=== PATIENT | female | born 1980 | race Caucasian/White ===

== ENCOUNTER 2017-07-16 08:51 | Emergency (ER) | payer MEDICAID ==
[~2017-07-16] VITALS: Ht 172.7 cm; Wt 110.0 kg
[~2017-07-16 08:51] MED LIST: ONDA4TAB12 PO
[2017-07-16] MEDS ORDERED: morphine 8mg/ml inj. syringe IV PRN (09:50)
[2017-07-16] MEDS ORDERED: ondansetron/PF 4mg/2ml inj IV ONE (09:50)
[2017-07-16] MEDS ORDERED: normal saline 1000ML IV soln IVB ONE (09:50)
[2017-07-16 10:17] LABS: BASOPHILS % (AUTO) 0.2 % (0-1); EOSINOPHILS # (AUTO) 0.2 X10'3 (0-0.9); EOSINOPHILS % (AUTO) 2.3 % (0-6); HEMATOCRIT 44.5 % (35.0-45.0); HEMOGLOBIN 14.9 g/dl (12.0-16.0); LYMPHOCYTES # (AUTO) 1.7 X10'3 (1.1-4.8); LYMPHOCYTES % (AUTO) 16.2 % (21-51); MEAN CORPUSCULAR HEMOGLOBIN 27.2 PG (27.0-31.0); MEAN CORPUSCULAR HGB CONC 33.5 % (33.0-36.5); MEAN PLATELET VOLUME 8.3 FL (7.4-10.4); MONOCYTES # (AUTO) 0.4 X10'3 (0-0.9); MONOCYTES % (AUTO) 4.1 % (2-12); NEUTROPHILS # (AUTO) 8.3 X10'3 (1.8-7.7); NEUTROPHILS % (AUTO) 77.2 % (42-75); PLATELET COUNT 343 X10'3 (140-440); RED CELL DISTRIBUTION WIDTH 14.4 % (11.5-14.5); WHITE BLOOD COUNT 10.8 X10'3 (4.5-11.0)
[2017-07-16 10:31] LABS: ALANINE AMINOTRANSFERASE 29 U/L (12-78); ALBUMIN 3.7 G/DL (3.4-5.0); ALBUMIN/GLOBULIN RATIO 0.9 (1.1-1.5); ALKALINE PHOSPHATASE 110 IU/L (46-116); ANION GAP 10 (8-16); ASPARTATE AMINO TRANSFERASE 12 U/L (10-37); BILIRUBIN,TOTAL 0.2 MG/DL (0.1-1.0); BLOOD UREA NITROGEN 20 MG/DL (7-18); BUN/CREATININE RATIO 23.3 (6.6-38.0); CALCIUM 9.3 MG/DL (8.5-10.1); CHLORIDE 107 MMOL/L (99-107); CREATININE 0.86 MG/DL (0.40-0.90); GLUCOSE 94 MG/DL (70-104); LIPASE 154 U/L (73-393); POTASSIUM 4.1 MMOL/L (3.5-5.1); SODIUM 143 MMOL/L (135-145); TOTAL CARBON DIOXIDE 25.7 MMOL/L (24-32); TOTAL PROTEIN 7.6 G/DL (6.4-8.2); eGFR 74 ML/MIN
[2017-07-16] MEDS ORDERED: morphine 4 MG/ML inj SYRINge IV ONE (10:35)
[2017-07-16] MEDS ORDERED: ONDA8TAB9 PO (11:00)
[2017-07-16] MEDS ORDERED: HYDR-3965 PO (11:00)
[2017-07-16 11:11] LABS: CLARITY,URINE CLEAR (Clear); COLOR,URINE YELLOW (Yellow); GLUCOSE, URINE NEGATIVE (Neg); KETONES,URINE NEGATIVE (Neg); LEUKOCYTE ESTERASE ,URINE NEGATIVE (Neg); NITRITES, URINE NEGATIVE (Neg); OCCULT BLOOD,URINE NEGATIVE (Neg); PROTEIN,URINE NEGATIVE (Neg); UROBILINOGEN,URINE 0.2 E.U/dL (0.2-1.0)
[2017-07-16 11:12] LABS: URINE HCG NEGATIVE (NEG)
[2017-07-16 11:15] LABS: UA COLLECTION TYPE CLN CATCH MIDSTREAM
[2017-07-16 11:25] VITALS: BP 155/91
[2017-07-17] MEDS ORDERED: LURA60TA2 PO (17:54)
[2017-07-17] MEDS ORDERED: LEVO25TA2 PO (17:54)
[2017-07-17] MEDS ORDERED: LAMO100T2 PO (17:54)
== END 2017-07-16 11:26 | disposition home or self-care (01) ==
LOC: ER 08:51
DX: K80.80 Other cholelithiasis without obstruction (principal); K21.9 Gastro-esophageal reflux disease without esophagitis; Z88.2 Allergy status to sulfonamides; Z88.8 Allergy status to other drugs, medicaments and biological substances; Z79.899 Other long term (current) drug therapy
CPT/HCPCS: 36415; 76700; 80053; 81003; 81025; 83690; 85025; 96361; 96374; 96375; 99285; J2270; J2405; J7030

== ENCOUNTER 2017-07-16 20:51 | Emergency (ER) | payer MEDICAID ==
[~2017-07-16] VITALS: Ht 172.7 cm; Wt 97.0 kg
[~2017-07-16 20:51] MED LIST changes: +HYDR-3965 PO; +ONDA8TAB9 PO
[2017-07-16] MEDS ORDERED: ondansetron/PF 4mg/2ml inj IV ONE (21:25)
[2017-07-16] MEDS ORDERED: morphine 2 MG/ML inj. syringe IV ONE ×4 (21:25→23:55)
[2017-07-16] MEDS ORDERED: ketorolac trometh. 30mg/ml inj. IV ONE (22:05)
[2017-07-16 22:48] LABS: ALANINE AMINOTRANSFERASE 26 U/L (12-78); ALBUMIN 3.7 G/DL (3.4-5.0); ALKALINE PHOSPHATASE 91 IU/L (46-116); ANION GAP 12 (8-16); ASPARTATE AMINO TRANSFERASE 12 U/L (10-37); BILIRUBIN,TOTAL 0.2 MG/DL (0.1-1.0); BLOOD UREA NITROGEN 16 MG/DL (7-18); BUN/CREATININE RATIO 20.3 (6.6-38.0); CHLORIDE 107 MMOL/L (99-107); CREATININE 0.79 MG/DL (0.40-0.90); GLUCOSE 120 MG/DL (70-104); POTASSIUM 3.9 MMOL/L (3.5-5.1); SODIUM 142 MMOL/L (135-145); TOTAL CARBON DIOXIDE 22.7 MMOL/L (24-32); TOTAL PROTEIN 7.4 G/DL (6.4-8.2); eGFR 81 ML/MIN
[2017-07-16] MEDS ORDERED: LORazepam 2 mg/ml vial IV ONE (23:55)
[2017-07-17 01:17] VITALS: BP 118/81
[2017-07-17] MEDS ORDERED: LAMO100T2 PO (17:54)
[2017-07-17] MEDS ORDERED: LEVO25TA2 PO (17:54)
[2017-07-17] MEDS ORDERED: LURA60TA2 PO (17:54)
== END 2017-07-17 01:19 | disposition home or self-care (01) ==
LOC: ER 20:52
DX: K80.20 Calculus of gallbladder without cholecystitis without obstruction (principal); K21.9 Gastro-esophageal reflux disease without esophagitis; F12.10 Cannabis abuse, uncomplicated; Z88.2 Allergy status to sulfonamides; Z88.1 Allergy status to other antibiotic agents; Z88.8 Allergy status to other drugs, medicaments and biological substances; Z79.899 Other long term (current) drug therapy
CPT/HCPCS: 36415; 80053; 96374; 96375; 96376; 99284; J1885; J2060; J2270; J2405

== ENCOUNTER 2017-07-17 09:24 | Inpatient (IN) | payer MEDICAID ==
[~2017-07-17] VITALS: Ht 172.7 cm; Wt 97.3 kg
[2017-07-17 10:22] LABS: BASOPHILS % (AUTO) 0 % (0-1); EOSINOPHILS % (AUTO) 0 % (0-6); HEMOGLOBIN 14.5 g/dl (12.0-16.0); LYMPHOCYTES # (AUTO) 1.5 X10'3 (1.1-4.8); LYMPHOCYTES % (AUTO) 7.7 % (21-51); MEAN CORPUSCULAR HEMOGLOBIN 27.3 PG (27.0-31.0); MEAN CORPUSCULAR HGB CONC 33.7 % (33.0-36.5); MEAN CORPUSCULAR VOLUME 81.2 FL (78-98); MEAN PLATELET VOLUME 8.2 FL (7.4-10.4); MONOCYTES # (AUTO) 0.7 X10'3 (0-0.9); MONOCYTES % (AUTO) 3.7 % (2-12); NEUTROPHILS # (AUTO) 17.4 X10'3 (1.8-7.7); NEUTROPHILS % (AUTO) 88.6 % (42-75); PLATELET COUNT 368 X10'3 (140-440); RED CELL DISTRIBUTION WIDTH 14.7 % (11.5-14.5); WHITE BLOOD COUNT 19.7 X10'3 (4.5-11.0)
[2017-07-17 10:36] LABS: PROTHROMBIN TIME 10.4 SECONDS (9.0-12.0)
[2017-07-17] MEDS ORDERED: normal saline 1000ML IV soln IVB ONE (10:40)
[2017-07-17] MEDS ORDERED: ondansetron/PF 4mg/2ml inj IV ONE (10:40)
[2017-07-17 10:42] LABS: ALANINE AMINOTRANSFERASE 35 U/L (12-78); ALBUMIN 3.7 G/DL (3.4-5.0); ALBUMIN/GLOBULIN RATIO 0.9 (1.1-1.5); ALKALINE PHOSPHATASE 95 IU/L (46-116); ANION GAP 10 (8-16); ASPARTATE AMINO TRANSFERASE 18 U/L (10-37); BILIRUBIN,TOTAL 0.4 MG/DL (0.1-1.0); BLOOD UREA NITROGEN 16 MG/DL (7-18); BUN/CREATININE RATIO 21.3 (6.6-38.0); CALCIUM 8.9 MG/DL (8.5-10.1); CHLORIDE 101 MMOL/L (99-107); CREATININE 0.75 MG/DL (0.40-0.90); GLUCOSE 125 MG/DL (70-104); SODIUM 139 MMOL/L (135-145); TOTAL PROTEIN 7.6 G/DL (6.4-8.2); eGFR 86 ML/MIN
[2017-07-17] MEDS ORDERED: HYDROmorphone inj. 0.5 MG/0.5 ML DISP.SYRIN IV ONE ×3 (10:45→15:35)
[2017-07-17 11:09] LABS: LIPASE 95 U/L (73-393)
[2017-07-17 11:15] LABS: CLARITY,URINE CLOUDY (Clear); COLOR,URINE YELLOW (Yellow); GLUCOSE, URINE NEGATIVE (Neg); KETONES,URINE NEGATIVE (Neg); LEUKOCYTE ESTERASE ,URINE NEGATIVE (Neg); NITRITES, URINE NEGATIVE (Neg); OCCULT BLOOD,URINE MODERATE (Neg); PROTEIN,URINE TRACE mg/dl (Neg); UROBILINOGEN,URINE 0.2 E.U/dL (0.2-1.0)
[2017-07-17 11:16] LABS: UA COLLECTION TYPE VOIDED
[2017-07-17 11:24] LABS: BACTERIA,URINE 2+ /HPF (Neg); MUCUS STRANDS MODERATE /LPF (Neg); SQUAMOUS EPITHELIAL CELL,UR MANY /LPF (FEW); WBC,URINE 0-4 /HPF (0-4)
[2017-07-17] MEDS ORDERED: levoFLOXACIN-Levaquin 750MG/D5 150 ML IV ONE (12:20)
[2017-07-17] MEDS ORDERED: magnesium hydroxide 30ml (MOM) UD suspension PO PRN ×3 (12:45→17:05)
[2017-07-17] MEDS ORDERED: mag hydrox/Alum hydrox/simeth 30ml oral suspension PO PRN ×2 (12:45→17:05)
[2017-07-17] MEDS ORDERED: acetaminophen 325mg tablet PO PRN ×4 (12:45→17:05)
[2017-07-17] MEDS ORDERED: ondansetron/PF 4mg/2ml inj IV PRN ×3 (12:45→17:05)
[2017-07-17] MEDS ORDERED: lisinopril 5mg tablet PO ONE (16:30)
[2017-07-17] MEDS: dextrose 5%-1/2 normal saline 1,000 ML IV SCH (16:52)
[2017-07-17 17:00] VITALS: BP 170/117
[2017-07-17] MEDS ORDERED: NORMAL SALINE IV ONE (17:05)
[2017-07-17] MEDS ORDERED: SINCALIDE IV ONE (17:05)
[2017-07-17] MEDS ORDERED: morphine 2 MG/ML inj. syringe IV PRN ×2 (17:05)
[2017-07-17] MEDS ORDERED: potassium Cl 20 mEq SR tablet PO PRN ×2 (17:05)
[2017-07-17] MEDS ORDERED: potassium Cl 40MEQ/NS 500ml 500 ML IV PRN ×2 (17:05)
[2017-07-17] MEDS ORDERED: potassium Cl 40MEQ/250ML bag 250 ML IV PRN ×2 (17:05)
[2017-07-17] MEDS ORDERED: HYDROmorphone 1 mg/ml syringe IV PRN ×2 (17:05)
[2017-07-17] MEDS: K, MAG and/or Phos replacement - Verify level? MC SCH (17:43)
[2017-07-17 17:45] VITALS: BP 159/88
[2017-07-17] MEDS ORDERED: LURA60TA2 PO (17:54)
[2017-07-17] MEDS ORDERED: LAMO100T2 PO (17:54)
[2017-07-17] MEDS ORDERED: LEVO25TA2 PO (17:54)
[2017-07-17 19:00] VITALS: BP 165/107
[2017-07-17] MEDS ORDERED: HYDROmorphone inj. 0.5 MG/0.5 ML DISP.SYRIN ONE ×2 (19:05→23:54)
[2017-07-17] MEDS: piperacillin/tazo 3.375gm/50ml 50 ML IV SCH (22:41)
[2017-07-17] MEDS: lurasidone 60mg tablet PO SCH (22:41)
[2017-07-17] MEDS: temazepam 15mg capsule PO PRN (22:57)
[2017-07-18] VITALS (21 sets, daily range): BP systolic 103–155; BP diastolic 54–103
[2017-07-18] MEDS ORDERED: ketorolac trometh. 30mg/ml inj. IV PRN (01:50)
[2017-07-18] MEDS ORDERED: ketorolac trometh. 30mg/ml inj. IV SCH (02:00)
[2017-07-18] MEDS: dextrose 5%-1/2 normal saline 1,000 ML IV SCH ×3 (02:20→22:45)
[2017-07-18] MEDS: piperacillin/tazo 3.375gm/50ml 50 ML IV SCH ×4 (02:21→20:18)
[2017-07-18 05:18] LABS: BASOPHILS # (AUTO) 0.1 X10'3 (0-0.2); BASOPHILS % (AUTO) 0.4 % (0-1); EOSINOPHILS # (AUTO) 0.3 X10'3 (0-0.9); EOSINOPHILS % (AUTO) 1.3 % (0-6); HEMATOCRIT 42.6 % (35.0-45.0); HEMOGLOBIN 14.5 g/dl (12.0-16.0); LYMPHOCYTES # (AUTO) 1.4 X10'3 (1.1-4.8); LYMPHOCYTES % (AUTO) 6.5 % (21-51); MEAN CORPUSCULAR HEMOGLOBIN 27.2 PG (27.0-31.0); MEAN CORPUSCULAR VOLUME 80.1 FL (78-98); MEAN PLATELET VOLUME 8.8 FL (7.4-10.4); MONOCYTES # (AUTO) 1.7 X10'3 (0-0.9); NEUTROPHILS # (AUTO) 17.8 X10'3 (1.8-7.7); NEUTROPHILS % (AUTO) 83.8 % (42-75); PLATELET COUNT 327 X10'3 (140-440); RED BLOOD COUNT 5.32 X10'6 (4.20-5.60); RED CELL DISTRIBUTION WIDTH 15.1 % (11.5-14.5); WHITE BLOOD COUNT 21.3 X10'3 (4.5-11.0)
[2017-07-18 05:32] LABS: ALANINE AMINOTRANSFERASE 45 U/L (12-78); ALBUMIN 2.9 G/DL (3.4-5.0); ALBUMIN/GLOBULIN RATIO 0.8 (1.1-1.5); ALKALINE PHOSPHATASE 100 IU/L (46-116); ANION GAP 8 (8-16); ASPARTATE AMINO TRANSFERASE 21 U/L (10-37); BILIRUBIN,TOTAL 0.9 MG/DL (0.1-1.0); BLOOD UREA NITROGEN 8 MG/DL (7-18); CALCIUM 7.9 MG/DL (8.5-10.1); CHLORIDE 100 MMOL/L (99-107); CREATININE 0.89 MG/DL (0.40-0.90); GLUCOSE 133 MG/DL (70-104); POTASSIUM 3.6 MMOL/L (3.5-5.1); SODIUM 136 MMOL/L (135-145); TOTAL CARBON DIOXIDE 27.9 MMOL/L (24-32); TOTAL PROTEIN 6.6 G/DL (6.4-8.2); eGFR 71 ML/MIN
[2017-07-18] MEDS: ketorolac tromethamine 15mg/ml inj. IV PRN ×2 (05:53→14:44)
[2017-07-18] MEDS: levoTHYROXINE 25mcg tablet PO SCH (07:00)
[2017-07-18] MEDS: K, MAG and/or Phos replacement - Verify level? MC SCH (08:00)
[2017-07-18] MEDS: lamoTRIgine 100mg tablet PO SCH (08:00)
[2017-07-18] MEDS ORDERED: morphine 2 MG/ML inj. syringe IV ONE (09:10)
[2017-07-18] MEDS ORDERED: morphine 2 MG/ML inj. syringe ONE (09:12)
[2017-07-18] MEDS ORDERED: ondansetron/PF 4mg/2ml inj IV PRN ×2 (10:40→12:30)
[2017-07-18] MEDS ORDERED: acetaminophen 1,000mg/100ml IV 100 ML IV PRN (10:40)
[2017-07-18] MEDS ORDERED: proCHLORperazine 10 MG/2 ml inj IV PRN (10:40)
[2017-07-18] MEDS ORDERED: meperidine/PF 50mg/ml syringe IV PRN ×2 (10:40)
[2017-07-18] MEDS ORDERED: ringers solution, lacted 1,000 ML IV SCH (10:40)
[2017-07-18] MEDS ORDERED: morphine 2 MG/ML inj. syringe IV PRN ×2 (10:40)
[2017-07-18] MEDS ORDERED: BUPIVAcaine/PF 2.5 mg/ml (0.25%) 30ml vial ONE (10:48)
[2017-07-18] MEDS ORDERED: ceFAZolin 1000mg inj ONE (11:01)
[2017-07-18] MEDS ORDERED: fentaNYL/PF 50MCG/1 ML 2ML syringe ONE (11:18)
[2017-07-18] MEDS ORDERED: midazolam 2 mg/2 ml injection ONE (11:18)
[2017-07-18] MEDS ORDERED: LIDOcaine 2% 5ml jelly ONE (11:20)
[2017-07-18] MEDS ORDERED: LIDOcaine 2% (20mg/ml) 5ml vial ONE (12:22)
[2017-07-18] MEDS ORDERED: ondansetron/PF 4mg/2ml inj ONE (12:22)
[2017-07-18] MEDS ORDERED: rocuronium 10mg/ml inj IV ONE (12:22)
[2017-07-18] MEDS ORDERED: dexamethasone sod phosphate 4mg/ml inj. ONE (12:22)
[2017-07-18] MEDS ORDERED: neostigmine methylsulfate 1 MG/ML 10ml vial ONE (12:22)
[2017-07-18] MEDS ORDERED: propofol inj 20 ML IV ONE (12:22)
[2017-07-18] MEDS ORDERED: glycopyrrolate 0.2mg/ml inj ONE (12:23)
[2017-07-18] MEDS ORDERED: HYDROmorphone 1 mg/ml syringe IV PRN (12:30)
[2017-07-18] MEDS: meperidine/PF 50mg/ml syringe IV PRN ×2 (12:59→13:16)
[2017-07-18] MEDS ORDERED: nicotine 14mg patch - 24hr TD ONE (16:55)
[2017-07-18] MEDS: HYDROcodone/acetaminophen 10/325mg tab PO PRN (17:45)
[2017-07-18] MEDS: lurasidone 60mg tablet PO SCH (20:18)
[2017-07-18] MEDS: lactobacillus rhamnosus 10,000 MMU CELLS/CAPSULE PO SCH (20:19)
[2017-07-18] MEDS ORDERED: HYDROmorphone inj. 0.5 MG/0.5 ML DISP.SYRIN ONE (20:37)
[2017-07-19] VITALS (7 sets, daily range): BP systolic 92–104; BP diastolic 55–70
[2017-07-19] MEDS ORDERED: HYDROmorphone inj. 0.5 MG/0.5 ML DISP.SYRIN ONE ×2 (00:04→05:01)
[2017-07-19] MEDS: temazepam 15mg capsule PO PRN ×2 (00:12→22:14)
[2017-07-19] MEDS: HYDROcodone/acetaminophen 10/325mg tab PO PRN ×4 (00:12→22:14)
[2017-07-19] MEDS: piperacillin/tazo 3.375gm/50ml 50 ML IV SCH ×4 (01:49→19:59)
[2017-07-19] MEDS: dextrose 5%-1/2 normal saline 1,000 ML IV SCH ×2 (01:50→14:49)
[2017-07-19 05:23] LABS: BASOPHILS # (AUTO) 0.1 X10'3 (0-0.2); BASOPHILS % (AUTO) 0.4 % (0-1); EOSINOPHILS # (AUTO) 0.3 X10'3 (0-0.9); EOSINOPHILS % (AUTO) 1.5 % (0-6); HEMATOCRIT 36.6 % (35.0-45.0); HEMOGLOBIN 12.5 g/dl (12.0-16.0); LYMPHOCYTES # (AUTO) 1.4 X10'3 (1.1-4.8); LYMPHOCYTES % (AUTO) 8.1 % (21-51); MEAN CORPUSCULAR HEMOGLOBIN 27.4 PG (27.0-31.0); MEAN CORPUSCULAR HGB CONC 34.1 % (33.0-36.5); MEAN CORPUSCULAR VOLUME 80.6 FL (78-98); MEAN PLATELET VOLUME 8.6 FL (7.4-10.4); MONOCYTES # (AUTO) 0.7 X10'3 (0-0.9); NEUTROPHILS # (AUTO) 14.5 X10'3 (1.8-7.7); PLATELET COUNT 292 X10'3 (140-440); RED BLOOD COUNT 4.54 X10'6 (4.20-5.60); RED CELL DISTRIBUTION WIDTH 14.8 % (11.5-14.5); WHITE BLOOD COUNT 16.8 X10'3 (4.5-11.0)
[2017-07-19 06:06] LABS: ALANINE AMINOTRANSFERASE 52 U/L (12-78); ALBUMIN 2.3 G/DL (3.4-5.0); ALBUMIN/GLOBULIN RATIO 0.6 (1.1-1.5); ALKALINE PHOSPHATASE 97 IU/L (46-116); ANION GAP 6 (8-16); ASPARTATE AMINO TRANSFERASE 30 U/L (10-37); BILIRUBIN,TOTAL 0.3 MG/DL (0.1-1.0); BLOOD UREA NITROGEN 12 MG/DL (7-18); CHLORIDE 107 MMOL/L (99-107); GLUCOSE 143 MG/DL (70-104); POTASSIUM 3.5 MMOL/L (3.5-5.1); SODIUM 139 MMOL/L (135-145); TOTAL CARBON DIOXIDE 26.2 MMOL/L (24-32); TOTAL PROTEIN 5.9 G/DL (6.4-8.2); eGFR 80 ML/MIN
[2017-07-19] MEDS: levoTHYROXINE 25mcg tablet PO SCH (07:38)
[2017-07-19] MEDS: lactobacillus rhamnosus 10,000 MMU CELLS/CAPSULE PO SCH ×2 (07:39→20:04)
[2017-07-19] MEDS: nicotine 14mg patch - 24hr TD SCH (07:39)
[2017-07-19] MEDS: lamoTRIgine 100mg tablet PO SCH (07:39)
[2017-07-19] MEDS ORDERED: HYDROmorphone inj. 0.5 MG/0.5 ML DISP.SYRIN IV PRN (07:56)
[2017-07-19] MEDS: K, MAG and/or Phos replacement - Verify level? MC SCH (08:00)
[2017-07-19] MEDS ORDERED: normal saline 1000ml 1,000 ML IV ONE (13:45)
[2017-07-19] MEDS: lurasidone 60mg tablet PO SCH (20:04)
[2017-07-20] MEDS: piperacillin/tazo 3.375gm/50ml 50 ML IV SCH ×2 (01:23→07:17)
[2017-07-20] MEDS: dextrose 5%-1/2 normal saline 1,000 ML IV SCH (01:24)
[2017-07-20] MEDS: HYDROcodone/acetaminophen 10/325mg tab PO PRN ×2 (05:06→09:24)
[2017-07-20 05:36] LABS: BASOPHILS % (AUTO) 0.1 % (0-1); EOSINOPHILS # (AUTO) 0.3 X10'3 (0-0.9); EOSINOPHILS % (AUTO) 2.3 % (0-6); LYMPHOCYTES # (AUTO) 3.9 X10'3 (1.1-4.8); LYMPHOCYTES % (AUTO) 32.2 % (21-51); MEAN CORPUSCULAR HEMOGLOBIN 27.2 PG (27.0-31.0); MEAN CORPUSCULAR HGB CONC 33.3 % (33.0-36.5); MEAN CORPUSCULAR VOLUME 81.6 FL (78-98); MEAN PLATELET VOLUME 8.5 FL (7.4-10.4); MONOCYTES # (AUTO) 0.7 X10'3 (0-0.9); NEUTROPHILS # (AUTO) 7.1 X10'3 (1.8-7.7); NEUTROPHILS % (AUTO) 59.4 % (42-75); PLATELET COUNT 303 X10'3 (140-440); RED BLOOD COUNT 4.04 X10'6 (4.20-5.60); RED CELL DISTRIBUTION WIDTH 14.9 % (11.5-14.5)
[2017-07-20 05:45] LABS: ANION GAP 8 (8-16); CHLORIDE 110 MMOL/L (99-107); GLUCOSE 114 MG/DL (70-104); POTASSIUM 3.3 MMOL/L (3.5-5.1); SODIUM 144 MMOL/L (135-145); TOTAL CARBON DIOXIDE 26.2 MMOL/L (24-32)
[2017-07-20 05:46] LABS: ALANINE AMINOTRANSFERASE 49 U/L (12-78); ALBUMIN 2.1 G/DL (3.4-5.0); ALBUMIN/GLOBULIN RATIO 0.7 (1.1-1.5); ALKALINE PHOSPHATASE 76 IU/L (46-116); ASPARTATE AMINO TRANSFERASE 21 U/L (10-37); BILIRUBIN,TOTAL 0.2 MG/DL (0.1-1.0); BLOOD UREA NITROGEN 14 MG/DL (7-18); BUN/CREATININE RATIO 18.2 (6.6-38.0); CALCIUM 7.9 MG/DL (8.5-10.1); CREATININE 0.77 MG/DL (0.40-0.90); TOTAL PROTEIN 5.3 G/DL (6.4-8.2); eGFR 84 ML/MIN
[2017-07-20] MEDS: lamoTRIgine 100mg tablet PO SCH (07:16)
[2017-07-20] MEDS: levoTHYROXINE 25mcg tablet PO SCH (07:16)
[2017-07-20] MEDS: lactobacillus rhamnosus 10,000 MMU CELLS/CAPSULE PO SCH (07:17)
[2017-07-20] MEDS: nicotine 14mg patch - 24hr TD SCH (07:19)
[2017-07-20 07:30] VITALS: BP 98/66
[2017-07-20] MEDS: K, MAG and/or Phos replacement - Verify level? MC SCH (08:41)
[2017-07-20 11:00] VITALS: BP 118/84
[2017-07-20] MEDS ORDERED: nicotine 14mg patch - 24hr TD ONE (12:15)
== END 2017-07-20 15:30 | disposition home or self-care (01) | DRG 263 ==
LOC: ER 09:25 → ED HOLD 12:41 → EDBEDREQ 14:45 → SUR 3N 15:44 → PACU 07-18 12:14 → SUR 3N 07-18 13:50
PROVIDERS: ADMIT Internal Medicine; ATTEND Internal Medicine
PROC: CF141ZZ Planar Nuclear Medicine Imaging of Gallbladder using Technetium 99m (Tc-99m) (ICD-10-PCS; 2017-07-18)
PROC: 0FT44ZZ Resection of Gallbladder, Percutaneous Endoscopic Approach (ICD-10-PCS; principal; 2017-07-18 11:15)
DX: K80.62 Calculus of gallbladder and bile duct with acute cholecystitis without obstruction (principal); F31.30 Bipolar disorder, current episode depressed, mild or moderate severity, unspecified; E03.9 Hypothyroidism, unspecified; F12.90 Cannabis use, unspecified, uncomplicated; K21.9 Gastro-esophageal reflux disease without esophagitis; N83.201 Unspecified ovarian cyst, right side; F41.9 Anxiety disorder, unspecified; M54.9 Dorsalgia, unspecified; Z88.2 Allergy status to sulfonamides; Z88.1 Allergy status to other antibiotic agents; Z88.8 Allergy status to other drugs, medicaments and biological substances; Z79.899 Other long term (current) drug therapy; Z87.891 Personal history of nicotine dependence
CPT/HCPCS: 36415; 74176; 78227; 80053; 81001; 83605; 83690; 85025; 85610; 87040; 87070; 93005; 96361; 96374; 96375; 99285; A6251; A6449; A7000; A9537; J0131; J0690; J1100; J1170; J1885; J1956; J2001; J2175; J2250; J2270; J2405; J2543; J2704; J2710; J2805; J3010; J3490; J7030; J7040; J7120

== ENCOUNTER 2018-06-05 23:27 | Emergency (ER) | payer MEDICAID ==
[~2018-06-05] VITALS: Ht 170.2 cm; Wt 90.0 kg
[~2018-06-05 23:27] MED LIST changes: -HYDR-3965 PO; +LAMO100T2 PO; +LEVO25TA2 PO; +LURA60TA2 PO; -ONDA8TAB9 PO
[2018-06-05 23:32] VITALS: BP 166/118
[2018-06-05] MEDS ORDERED: METH-360 PO (23:44)
[2018-06-05] MEDS ORDERED: orphenadrine citrate 60mg/2ml inj. IM ONE (23:45)
[2018-06-05] MEDS ORDERED: ketorolac trometh inj. 60 MG/2 ML VIAL IM ONE (23:45)
== END 2018-06-06 00:09 | disposition home or self-care (01) ==
LOC: ER 23:28
DX: G89.29 Other chronic pain (principal); M54.41 Lumbago with sciatica, right side; M62.830 Muscle spasm of back; F12.90 Cannabis use, unspecified, uncomplicated; K21.9 Gastro-esophageal reflux disease without esophagitis; Z88.2 Allergy status to sulfonamides; Z88.1 Allergy status to other antibiotic agents; Z88.8 Allergy status to other drugs, medicaments and biological substances; Z79.899 Other long term (current) drug therapy
CPT/HCPCS: 96372; 99283; J1885; J2360

== ENCOUNTER 2018-06-11 20:52 | Emergency (ER) | payer MEDICAID ==
[~2018-06-11] VITALS: Ht 172.7 cm; Wt 74.9 kg
[~2018-06-11 20:52] MED LIST changes: +METH-360 PO
[2018-06-11 21:12] VITALS: BP 141/94
[2018-06-11] MEDS ORDERED: triamcinolone acetonide 40mg/ml inj IM ONE (21:55)
[2018-06-11] MEDS ORDERED: ORPH100T2 PO (21:58)
== END 2018-06-11 22:39 | disposition home or self-care (01) ==
LOC: ER 20:53
DX: G89.29 Other chronic pain (principal); M54.41 Lumbago with sciatica, right side; K21.9 Gastro-esophageal reflux disease without esophagitis; F12.90 Cannabis use, unspecified, uncomplicated; Z88.2 Allergy status to sulfonamides; Z88.1 Allergy status to other antibiotic agents; Z88.8 Allergy status to other drugs, medicaments and biological substances; Z79.899 Other long term (current) drug therapy
CPT/HCPCS: 96372; 99283; J3301

== ENCOUNTER 2019-01-04 11:23 | Emergency (ER) | payer MEDICAID, OTHER ==
[~2019-01-04] VITALS: Ht 172.7 cm; Wt 79.5 kg
[~2019-01-04 11:23] MED LIST changes: +ORPH100T2 PO
[2019-01-04 11:34] VITALS: BP 151/101
[2019-01-04] MEDS ORDERED: ketorolac trometh inj. 60 MG/2 ML VIAL IM ONE (11:40)
[2019-01-04] MEDS ORDERED: CYCL-1 PO (11:40)
== END 2019-01-04 11:49 | disposition home or self-care (01) ==
LOC: ER 11:24
DX: G89.29 Other chronic pain (principal); M54.41 Lumbago with sciatica, right side; K21.9 Gastro-esophageal reflux disease without esophagitis; F41.9 Anxiety disorder, unspecified; F31.9 Bipolar disorder, unspecified; F12.90 Cannabis use, unspecified, uncomplicated; Z88.2 Allergy status to sulfonamides; Z88.1 Allergy status to other antibiotic agents; Z88.8 Allergy status to other drugs, medicaments and biological substances; Z79.899 Other long term (current) drug therapy
CPT/HCPCS: 96372; 99283; J1885

== ENCOUNTER 2024-10-09 13:48 | Outpatient (CLI) | payer MEDICAID ==
[~2024-10-09 13:48] MED LIST changes: +CYCL-1 PO; +LURA60TA PO; -LURA60TA2 PO; +ONDA-243 PO; -ONDA4TAB12 PO; -ORPH100T2 PO; +ORPH100T4 PO
--- NOTE | 2024-10-09 17:58 | RADIOLOGY REPORT ---
Procedure: MR MRI UPPER EXTREMITY LEFT 10/09/2024 01:23 PM INDICATION: PAIN IN LEFT SHOULDER COMPARISON: None TECHNIQUE: Multiplanar, multisequence MRI of the left shoulder was performed. FINDINGS: Supraspinatus: Moderate tendinosis with no evidence for tendon tear . Infraspinatus: Normal in morphology and signal. Subscapularis: Mild tendinosis with no evidence for tendon tear. Teres minor: Normal in morphology and signal. Biceps tendon: Long head biceps tendon is normal in morphology and signal. Short head biceps tendon is intact. Subacromial bursa: Mild fluid distention. Subcoracoid bursa: Mild fluid distention. Acromioclavicular joint: Degenerative hypertrophy. Type II acromion. Glenohumeral joint: Unremarkable. Glenoid labrum: Posterior labrum is macerated. Bones: No suspicious lesion is identified. Other: Unremarkable. IMPRESSION: 1. Mild degenerative hypertrophy of the acromioclavicular joint and subacromial spurring with evidenc e of rotator cuff impingement.Rotator cuff 2. Tendinosis with no definite tear. 3. The posterior labrum is macerated.
== END 2024-10-09 23:59 | disposition home or self-care (01) ==
LOC: MRI02 13:48
PROVIDERS: ATTEND Family Medicine
DX: M19.012 Primary osteoarthritis, left shoulder (principal); M75.42 Impingement syndrome of left shoulder; M25.512 Pain in left shoulder
CPT/HCPCS: 73221